=== PATIENT | female | born 1945 | race Hispanic/Latino ===

== ENCOUNTER 2020-05-06 17:32 | Inpatient (IN) | payer MEDICARE ==
[~2020-05-06] VITALS: Ht 157.5 cm; Wt 68.9 kg
--- OUTSIDE RECORDS SUMMARY | 2020-05-06 17:36 | XMS REPORT | Clinical Summary ---
Author Author [facility] Address Unknown Phone Unavailable Care Team Providers Care Educational Program Assistant Name Role Phone Des Gregory MD PCP Allergies No Known Active Allergies Medications End Date Status Medication Sig Dispensed Refills Start Date Active losartan-hydrochlorothiaz TK 1 T PO BID 1 03/27 mikaela (HYZAAR) 50-12.5 mg QD 8 per tablet Active omeprazole (PriLOSEC) 20 TK ONE C PO D 1 02/21 MG capsule 8 Active Problems No known active problems Surgical History Surgery Date Site/Laterality Comments KIDNEY SURGERY GALLBLADDER SURGERY Medical History Medical History Date Comments Hypertension Social History Date Tobacco Use Types Packs/Day Years Used Never Smoker Smokeless Tobacco: Never Used Drinks/Week oz/Week Comments Alcohol Use No Alcohol Habits Answer Date Recorded How often do you have a drink containing alcohol? Never 05/26/2018 How many drinks containing alcohol do you have on No t asked a typical day when you are drinking? How often do you have six or more drinks on one Not asked occasion? Sex Assigned at Date Recorded Not on file Last Filed Vital Signs Not on file Plan of Treatment Health Maintenance Due Date Last Done Comments BREAST CANCER SCREENING 1997 COLONOSCOPY SCREENING 1997 SHINGLES VACCINES (#1) 1997 65+ PNEUMOCOCCAL VACCINE 2012 ( - PPSV23) INFLUENZA VACCINE 01/26/2020 Results Not on fileafter 05/06/2019 Insurance Type Payer Benefit Subscriber ID Effective Phone Address Plan / Dates Group HMO [employer]IG[employer] CIGNA [id number] [id number] [facility] Advance Directives For more information, please contact: [phone] Patient Bell Person Explanation Type Date Recorded Advance Directives, Living Will and Medical Power of Animal Technician
--- OUTSIDE RECORDS SUMMARY | 2020-05-06 17:36 | XMS REPORT | Continuity of Care Document ---
Author Author [facility] t Organization [facility] Address [address] [place] [address] Phone Unavailable Care Team Providers Care Churn Tender Name Role Phone Colt STOCKTON, Oli Nunes PCP Payers Payer Name Policy Type Policy Number Effective Date Expiration Date S ource Problems This patient has no known problems. Allergies, Adverse Reactions, Alerts Allergy Name Allergy Type Status Severity Reaction(s) Onset Date Inacti ve Date Treating Clinician Comments Source No Known Allergies DA Active U 2020-01-30 00:00:00 [facility] Social History Social Habit Start Date Stop Date Quantity Comments Source History SDOH Alcohol Std Drinks [facility] History SDOH Alcohol Binge [place] [facility] Sex Assigned At [facility] Tobacco use and exposure 2018-05-26 00:00:00 2018-05-26 00:00:00 Jairosienna r used [facility] Alcohol intake 2018-05-26 00:00:00 2018-05-26 00:00:00 Current non-drinker of alcohol (finding) [facility] History SDOH Alcohol Frequency 2018-05-26 00:00:00 2018-05-26 00:00:0 0 1 [facility] Smoking Status Start Date Stop Date Source Never smoker [facility] Medications Ordered Medication Name Filled Medication Name Start Date Stop Da te Current Medication? Ordering Clinician Indication Dosage Frequency Signature (SIG) Comments Components Source losartan-hydrochlorothiazide (HYZAAR) 50-12.5 mg per tablet 2018-04-10 00:00:00 Yes TK 1 T [facility] 20 MG capsule 2018-02-21 00:00:00 Yes TK ONE C PO D [facility] Procedures This patient has no known procedures. Plan of Care Planned Activity Planned Date Details Comments Source Future Scheduled Test 2020-01-26 00:00:00 INFLUENZA VACCINE [code = INFLUENZA VACCINE] [facility] Future Scheduled Test 2012 00:00:00 65+ PNEUMOCOCCAL V ACCINE (1 of - PPSV23) [code = 65+ PNEUMOCOCCAL VACCINE (1 of - PPSV23)] [facility] Future Scheduled Test 1997 00:00:00 BREAST CANCER SCRE ENING [code = BREAST CANCER SCREENING] [facility] Future Scheduled Test 1997 00:00:00 COLONOSCOPY SCREEN ING [code = COLONOSCOPY SCREENING] [facility] Scheduled Test 1997 00:00:00 SHINGLES VACCINES (#1) [code = SHINGLES VACCINES (#1)] [facility] Results Test Description Test Time Test Comments Results Result Comments Source BASIC METABOLIC PANEL 2020-01-31 06:24:00 Test Item SODIUM (test code = NA) 138 mmol/L 136-145 RESU LT VERIFIED BY REPEAT ANALYSIS POTASSIUM (test code = K) 3.4 mmol/L 3.5-5.1 L CHLORIDE (test code = CL) 104.0 mmol/L 98-107 N CARBON DIOXIDE (test code = CO2) 27.0 mmol/L 21-32 N ANION GAP (test code = GAP) 10.4 10-20 N GLUCOSE (test code = GLU) 89 mg/dL 74-106 N BLOOD UREA NITROGEN (test code = BUN) 12 mg/dL 7-18 N GLOMERULAR FILTRATION RATE (test code = GFR) > 60 mL/min >=60 Estimated GFR by using Modified MDRD formula.Chronic kidney disease is defined as either kidney damageor GFR <60 mL/min/1.73 m2 for >3 months. CREATININE (test code = CREAT) 0.80 mg/dL 0.55-1.02 N Note change in reference range due to change in reagent. BUN/CREATININE RATIO (test code = BUN/CREA) 15.4 10-20 N CALCIUM (test code = CA) 8.5 mg/dL 8.5-10.1 N LIPID PROFILE (CORONARY RISK)2020-01-31 06:24:00* Test Item Value Reference Range Interpretation Comments TRIGLYCERIDES (test code = TRIG) 74 mg/dL 20-150 N CHOLESTEROL (test code = CHOL) 135 mg/dL 0-200 N CHOLESTEROL/HDL RATIO (test code = CHOLHDL) 2.0 RATIO 0-4.9 N RISK ASSOCIATED WITH CHOL/HDL RATIOS: Risk Male Female1/2 AVERAGE 3.43 3.27AVERAGE 4.97 4.442X AVERAGE 9.55 7.053X AVERAGE 23.39 11.04 REFERENCE VALUE IS RELATED TO RISK LEVELS ASRECOMMENDED BY THE KHADIJAH. HEART, LUNG, AND BLOOD INST. HDL CHOLESTEROL (test code = HDL) 56 mg/dL 40-60 N LIPOPROTEIN LDL (test code = LDL) 72 mg/dL 100-129 L Reference Interval: mg/dL mmol/L Optimal <100 <2.6Near/above optimal 100-129 2.6- 3.3Borderline High 130-159 3.4-4.1High 160-189 4.1-4.9Very High >=190 >=4.9========= This LDL result is a direct measurement.========= CBC W/AUTO [id number] 04:49:00* Test Item Value Reference Range Interpretation Comments WHITE BLOOD CELL (test code = WBC) 6.4 K/mm3 4.5-12.5 N RED BLOOD CELL (test code = RBC) 3.88 mill/mm3 3.7-5.2 N HEMOGLOBIN (test code = HGB) 11.3 gram/dL 11.5-15.5 L HEMATOCRIT (test code = HCT) 34.6 % 36.0-46.0 L MEAN CELL VOLUME (test code = MCV) 89.2 fL 80-98 N MEAN CELL HGB (test code = MCH) 29.1 picogram 27.0-33.0 N MEAN CELL HGB CONCETRATION (test code = MCHC) 32.7 gram/dL 33.0-36. 0 L RED CELL DISTRIBUTION WIDTH (test code = RDW) 12.3 % 11.6-16. 2 N RED CELL DISTRIBUTION WIDTH SD (test code = RDW-SD) 40.1 fL 37 .0-51.0 N PLATELET COUNT (test code = PLT) 304 K/mm3 150-450 N MEAN PLATELET VOLUME (test code = MPV) 11.4 fL 6.7-11.0 H NEUTROPHIL % (test code = NT%) 52.5 % 39.0-69.0 N IMMATURE GRANULOCYTE % (test code = IG%) 0.2 % 0.0-5.0 N LYMPHOCYTE % (test code = LY%) 36.8 % 25.0-55.0 N MONOCYTE % (test code = MO%) 9.1 % 0.0-10.0 N EOSINOPHIL % (test code = EO%) 0.6 % 0.0-5.0 N BASOPHIL % (test code = BA%) 0.8 % 0.0-1.0 N NUCLEATED RBC % (test code = NRBC%) 0.0 % 0-0 N NEUTROPHIL # (test code = NT#) 3.34 K/mm3 1.8-7.7 N IMMATURE GRANULOCYTE # (test code = IG#) 0.01 x10 3/uL 0-0.03 N LYMPHOCYTE # (test code = LY#) 2.34 K/mm3 1.0-5.0 N MONOCYTE # (test code = MO#) 0.58 K/mm3 0-0.8 N EOSINOPHIL # (test code = EO#) 0.04 K/mm3 0.0-0.5 N BASOPHIL # (test code = BA#) 0.05 K/mm3 0.0-0.2 N NUCLEATED RBC # (test code = NRBC#) 0.00 K/mm3 0.0-0.1 N MANUAL DIFF REQUIRED (test code = MDIFF) NO CBC W/AUTO [id number] 04:19:00* Test Item Value Reference Range Interpretation Comments WHITE BLOOD CELL (test code = WBC) K/mm3 4.5-12.5 RED BLOOD CELL (test code = RBC) mill/mm3 3.7-5.2 HEMOGLOBIN (test code = HGB) gram/dL 11.5-15.5 HEMATOCRIT (test code = HCT) % 36.0-46.0 MEAN CELL VOLUME (test code = MCV) fL 80-98 MEAN CELL HGB (test code = MCH) picogram 27.0-33.0 MEAN CELL HGB CONCETRATION (test code = MCHC) gram/dL 33.0-36. 0 RED CELL DISTRIBUTION WIDTH (test code = RDW) % 11.6-16. 2 RED CELL DISTRIBUTION WIDTH SD (test code = RDW-SD) fL 37 .0-51.0 PLATELET COUNT (test code = PLT) 304 K/mm3 150-450 N MEAN PLATELET VOLUME (test code = MPV) fL 6.7-11.0 NEUTROPHIL % (test code = NT%) % 39.0-69.0 IMMATURE GRANULOCYTE % (test code = IG%) % 0.0-5.0 LYMPHOCYTE % (test code = LY%) % 25.0-55.0 MONOCYTE % (test code = MO%) % 0.0-10.0 EOSINOPHIL % (test code = EO%) % 0.0-5.0 BASOPHIL % (test code = BA%) % 0.0-1.0 NEUTROPHIL # (test code = NT#) K/mm3 1.8-7.7 LYMPHOCYTE # (test code = LY#) K/mm3 1.0-5.0 MONOCYTE # (test code = MO#) K/mm3 0-0.8 EOSINOPHIL # (test code = EO#) K/mm3 0.0-0.5 BASOPHIL # (test code = BA#) K/mm3 0.0-0.2 [id number] 23:56:00* Test Item Value Reference Range Interpretation Comments TROPONIN-I (test code = TROPI) <0.015 ng/mL 0-0.045 N COMMENTS TO DEPUTY HARBORMASTER: COLLECT 3 HOURS AFTER PREVIOUS [id number] 10:04:00* Test Item Value Reference Range Interpretation Comments TROPONIN-I (test code = TROPI) <0.015 ng/mL 0-0.045 N COMMENTS TO DEPUTY HARBORMASTER: COLLECT 3 HOURS AFTER PREVIOUS SAMPLE- CTA CHEST FOR [id number] 09:17:00 Name: MITA CRISOSTOMO [facility] : 1945 Age/S: 74 / F [address] [facility] Unit #: [id number] Loc: [place] [address] Phys: Dimitrios Young DO Acct: [id number] Dis Date: Status: ADM IN PHONE #: [phone] Exam Date: 01/30/2020823 FAX #: [phone] Reason: evaluate for PE EXAMS: CPT CODE: [id number] [place] [address] REASON FOR EXAM: evaluate for PE EXAM ORDER DATE: 01/30/2020 6:53 AM Ordering M.D.: Dimitrios Young DO PROCEDURE: - CTA CHEST FOR PE Comparison:Chest x-ray earlier today Axial CT images of the chest were obtained with IV contrast. Reconstructed sagittal and coronal images of the chest were provided for interpretation. Dose reduction techniques were applied. FINDINGS: Visualized neck: Normal Airways, Lungs and Pleura: Normal Heart, great vessels, pulmonary vessels, mediastinum: Motion from patient respiration degrades images of the segmental and subsegmental pulmonary arteries. No emboli to the level of the lobar arteries and no evidence of right heart strain to suggest hemodynamically significant segmental or subsegmental pulmonary emboli. Atherosclerotic calcifications are scattered throughout the thoracic aorta. Mild coronary calcifications are also present. Lymph nodes: No axillary, internal mammary, hilar, or mediastinal adenopathy. Musculoskeletal/chest wall: Degenerative changes are seen throughout the visualized spine Visualized upper abdomen: Large hiatal hernia is present. Prior cholecystectomy IMPRESSION: No pulmonary embolus to the level of the lobar arteries and no evidence of hemodynamically significant segmental or subsegmental pulmonary emboli. No acute disease involving the airways or airspaces. PAGE 1 Signed Report (CONTINUED) Name: MITA CRISOSTOMO [facility] : 1945 Age/S: 74 / F [address] [facility] Unit #: [id number] [facility] [place] [address] Phys: Dimitrios Young DO Acct: [id number] Dis Date: Status: ADM IN PHONE #: [phone] Exam Date: 01/30/2020823 FAX #: [phone] Reason: evaluate for PE EXAMS: CPT CODE: [id number] CTA CHEST FOR PE 10009 <Continued> Large hiatal hernia. Location: [facility] Elect ronically Signed by Robel Farley MD on 01/30/2020 at 0917 Reported and signed by: Robel Farley MD CC: Dimitrios Calderon DO Technologist:Jm Harris RT(R),(MR),(CT); CTDI: DLP: Trnscb Date/Time: 01/30/2020 (916) [id number] Orig Print D/T: S: 01/30/2020 (919) PAGE 2 Signed Report B-TYPE NATRIURETIC [id number] 07:01:00* Test Item Value Reference Range Interpretation Comments B-TYPE NATRIURETIC PEPTIDE (test code = BNP) 19.65 pgram/mL 0-100 N C REACTIVE [id number] 06:23:00* Test Item Value Reference Range Interpretation Comments C REACTIVE PROTEIN (test code = CRP) <0.29 mg/dL 0-0.3 N BASIC METABOLIC [id number] 06:23:00* Test Item Value Reference Range Interpretation Comments SODIUM (test code = NA) 131 mmol/L 136-145 L POTASSIUM (test code = K) 3.5 mmol/L 3.5-5.1 N CHLORIDE (test code = CL) 98.0 mmol/L 98-107 N CARBON DIOXIDE (test code = CO2) 26.0 mmol/L 21-32 N ANION GAP (test code = GAP) 10.5 10-20 N GLUCOSE (test code = GLU) 100 mg/dL 74-106 N BLOOD UREA NITROGEN (test code = BUN) 18 mg/dL 7-18 N GLOMERULAR FILTRATION RATE (test code = GFR) > 60 mL/min >=60 Estimated GFR by using Modified MDRD formula.Chronic kidney disease is defined as either kidney damageor GFR <60 mL/min/1.73 m2 for >3 months. CREATININE (test code = CREAT) 0.90 mg/dL 0.55-1.02 N Note change in reference range due to change in reagent. BUN/CREATININE RATIO (test code = BUN/CREA) 20.7 10-20 H CALCIUM (test code = CA) 9.3 mg/dL 8.5-10.1 N LACTIC DEHYDROGENASE(LDH)2020-01-30 06:23:00* Test Item Value Reference Range Interpretation Comments LACTIC DEHYDROGENASE(LDH) (test code = LDH) 200 IUnit/L 84-246 N [id number] 06:23:00* Test Item Value Reference Range Interpretation Comments LIPASE (test code = LIP) 259 U/L 73.0-393.0 N [id number] 06:23:00* Test Item Value Reference Range Interpretation Comments TROPONIN-I (test code = TROPI) <0.015 ng/mL 0-0.045 N [id number] 06:23:00* Test Item Value Reference Range Interpretation Comments FERRITIN (test code = VINNY) 7 ng/mL 8-388 L LACTIC [id number] 06:23:00* Test Item Value Reference Range Interpretation Comments LACTIC ACID (test code = LACT) 1.2 mmol/L 0.4-1.9 N BASIC METABOLIC [id number] 06:15:00* Test Item Value Reference Range Interpretation Comments SODIUM (test code = NA) 131 mmol/L 136-145 L POTASSIUM (test code = K) 3.5 mmol/L 3.5-5.1 N CHLORIDE (test code = CL) 98.0 mmol/L 98-107 N CARBON DIOXIDE (test code = CO2) mmol/L 21-32 ANION GAP (test code = GAP) 10-20 GLUCOSE (test code = GLU) mg/dL 74-106 BLOOD UREA NITROGEN (test code = BUN) mg/dL 7-18 GLOMERULAR FILTRATION RATE (test code = GFR) mL/min >=60 CREATININE (test code = CREAT) mg/dL 0.55-1.02 BUN/CREATININE RATIO (test code = BUN/CREA) 10-20 CALCIUM (test code = CA) mg/dL 8.5-10.1 LACTIC DEHYDROGENASE(LDH)2020-01-30 06:15:00* Test Item Value Reference Range Interpretation Comments LACTIC DEHYDROGENASE(LDH) (test code = LDH) IUnit/L 84-246 [id number] 06:15:00* Test Item Value Reference Range Interpretation Comments LIPASE (test code = LIP) U/L 73.0-393.0 [id number] 06:15:00* Test Item Value Reference Range Interpretation Comments TROPONIN-I (test code = TROPI) ng/mL 0-0.045 [id number] 06:15:00* Test Item Value Reference Range Interpretation Comments FERRITIN (test code = VINNY) ng/mL 8-388 COVID 19 INHOUSE [id number] 06:13:00* Test Item Value Reference Range Interpretation Comments COVID 19 INHOUSE AG (test code = [id number]) NEGATIVE URINALYSIS [id number] 06:05:00* Test Item Value Reference Range Interpretation Comments UA COLOR (test code = COLU) Light-Yellow YELLOW UA APPEARANCE (test code = APPU) CLEAR CLEAR UA GLUCOSE DIPSTICK (test code = DGLUU) NEGATIVE mg/dL NEGATIVE UA BILIRUBIN DIPSTICK (test code = BILU) NEGATIVE mg/dL NEGATIVE UA KETONE DIPSTICK (test code = KETU) NEGATIVE mg/dL NEGATIVE UA SPECIFIC GRAVITY (test code = SGU) 1.014 1.001-1.035 UA BLOOD DIPSTICK (test code = ERIC) Negative mg/dL NEGATIVE UA PH DIPSTICK (test code = MAU) 7.0 5.0-8.0 UA PROTEIN DIPSTICK (test code = PROU) NEGATIVE mg/dL NEGATIVE UA UROBILINIOGEN DIPSTICK (test code = URO) Normal mg/dL NEGATIVE UA NITRITE DIPSTICK (test code = BOB) NEGATIVE NEGATIVE UA LEUKOCYTE ESTERASE W REFLEX (test code = LEUUR) 75 Alexandre/uL (1+) Alexandre/uL NEGATIVE A UA WBC (test code = WBCU) 0-5 per HPF 0-5 UA RBC (test code = RBCU) 0-2 #/HPF 0-5 UA EPITHELIAL CELLS (test code = EPIU) FEW per HPF FEW UA BACTERIA (test code = BACU) NONE SEEN #/HPF NONE UA MUCUS (test code = MUCU) FEW #/LPF FEW Urine Source? Clean CatchURINALYSIS [id number] 06:03:00* Test Item Value Reference Range Interpretation Comments UA COLOR (test code = COLU) Light-Yellow YELLOW UA APPEARANCE (test code = APPU) CLEAR CLEAR UA GLUCOSE DIPSTICK (test code = DGLUU) NEGATIVE mg/dL NEGATIVE UA BILIRUBIN DIPSTICK (test code = BILU) NEGATIVE mg/dL NEGATIVE UA KETONE DIPSTICK (test code = KETU) NEGATIVE mg/dL NEGATIVE UA SPECIFIC GRAVITY (test code = SGU) 1.014 1.001-1.035 UA BLOOD DIPSTICK (test code = ERIC) Negative mg/dL NEGATIVE UA PH DIPSTICK (test code = MAU) 7.0 5.0-8.0 UA PROTEIN DIPSTICK (test code = PROU) NEGATIVE mg/dL NEGATIVE UA UROBILINIOGEN DIPSTICK (test code = URO) Normal mg/dL NEGATIVE UA NITRITE DIPSTICK (test code = BOB) NEGATIVE NEGATIVE UA LEUKOCYTE ESTERASE W REFLEX (test code = LEUUR) 75 Alexandre/uL (1+) Alexandre/uL NEGATIVE A UA WBC (test code = WBCU) per HPF 0-5 UA RBC (test code = RBCU) per HPF 0-5 UA EPITHELIAL CELLS (test code = EPIU) per HPF Few UA BACTERIA (test code = BACU) per HPF NONE Urine Source? Clean Catch- XR CHEST 1 [id number] 05:47:00 FAX: Dimitrios Young DO [place]: B St: REG Name: MITA WILLAMS [facility] : [birth year] Age/S: 74/F [address] [facility] Unit #: [id number] [facility] [place] [address] Phys: Dimitrios Young DO Acct: [id number] Dis Date: Status: REG ER PHONE #: [phone] Exam Date: 01/30/2020 0520 FAX #: [phone] Reason: SHORTNESS OF BREATH EXAMS: CPT CODE: [id number] XR CHEST 1 V 06765 HISTORY: Shortness of breath Location: C3 COMPARISON:None FINDINGS: Heart size and vascularity are within normal limits. The lungs are clear of focal consolidation. No effusion, pneumothorax, or acute osseous abnormality. IMPRESSION: 1. No focal consolidation. No other acute abnormalities identified. Electr onically Signed by Denis Navarrete MD on 01/30/2020 at 0547 Reported and signed by: Denis Navarrete MD CC: Dimitrios Young DO Technologist: Katy Hahn Trnnmrd Date/Time/By: 01/30/2020 (0547) : By: [email or web address] Orig Print D/T: S: 01/30/2020 (4145) PAGE 1 Signed Report CBC W/AUTO [id number] 05:46:00* Test Item Value Reference Range Interpretation Comments WHITE BLOOD CELL (test code = WBC) 5.3 K/mm3 4.5-12.5 N RED BLOOD CELL (test code = RBC) 3.87 mill/mm3 3.7-5.2 N HEMOGLOBIN (test code = HGB) 11.2 gram/dL 11.5-15.5 L HEMATOCRIT (test code = HCT) 34.5 % 36.0-46.0 L MEAN CELL VOLUME (test code = MCV) 89.1 fL 80-98 N MEAN CELL HGB (test code = MCH) 28.9 picogram 27.0-33.0 N MEAN CELL HGB CONCETRATION (test code = MCHC) 32.5 gram/dL 33.0-36. 0 L RED CELL DISTRIBUTION WIDTH (test code = RDW) 12.3 % 11.6-16. 2 N RED CELL DISTRIBUTION WIDTH SD (test code = RDW-SD) 40.0 fL 37 .0-51.0 N PLATELET COUNT (test code = PLT) 301 K/mm3 150-450 N MEAN PLATELET VOLUME (test code = MPV) 11.2 fL 6.7-11.0 H NEUTROPHIL % (test code = NT%) 49.7 % 39.0-69.0 N IMMATURE GRANULOCYTE % (test code = IG%) 0.2 % 0.0-5.0 N LYMPHOCYTE % (test code = LY%) 39.3 % 25.0-55.0 N MONOCYTE % (test code = MO%) 8.6 % 0.0-10.0 N EOSINOPHIL % (test code = EO%) 1.5 % 0.0-5.0 N BASOPHIL % (test code = BA%) 0.7 % 0.0-1.0 N NUCLEATED RBC % (test code = NRBC%) 0.0 % 0-0 N NEUTROPHIL # (test code = NT#) 2.65 K/mm3 1.8-7.7 N IMMATURE GRANULOCYTE # (test code = IG#) 0.01 x10 3/uL 0-0.03 N LYMPHOCYTE # (test code = LY#) 2.10 K/mm3 1.0-5.0 N MONOCYTE # (test code = MO#) 0.46 K/mm3 0-0.8 N EOSINOPHIL # (test code = EO#) 0.08 K/mm3 0.0-0.5 N BASOPHIL # (test code = BA#) 0.04 K/mm3 0.0-0.2 N NUCLEATED RBC # (test code = NRBC#) 0.00 K/mm3 0.0-0.1 N MANUAL DIFF REQUIRED (test code = MDIFF) NO
[2020-05-06 17:45] VITALS: BP 159/66
--- NOTE | 2020-05-06 17:45 | NUR ---
Received patient direct admit. AO x4. Liberian speaking, daughter at bedside. Respiration even and unlabored without SOB. C/O abdominal pain radiating to back. Orientated to room and how to use the call light. Encourage to use call light if assistance needed.
[2020-05-06 18:29] LABS: BASOPHILS % 0.1 % (0.0-1.0); HEMOGLOBIN 7.3 g/dL (12.0-16.0); LYMPHOCYTES # (AUTO) 0.9 (1.0-3.2); LYMPHOCYTES % 7.5 % (18.0-39.1); MEAN CORPUSCULAR HEMOGLOBIN 29.1 pg (28-32); MEAN CORPUSCULAR HGB CONC 34.3 g/dL (31-35); MEAN CORPUSCULAR VOLUME 84.9 fL (81-99); MONOCYTES # (AUTO) 0.9 (0.2-0.8); MONOCYTES % 7.9 % (4.4-11.3); NEUTROPHILS # (AUTO) 9.5 (2.1-6.9); NEUTROPHILS % 84.1 % (38.7-80.0); PLATELET COUNT 259 x10e3/uL (140-360); RED BLOOD COUNT 2.51 x10e6/uL (3.6-5.1); RED CELL DISTRIBUTION WIDTH 12.7 % (11.7-14.4)
[2020-05-06 18:32] LABS: HEMATOCRIT 21.3 % (34.2-44.1)
[2020-05-06] MEDS ORDERED: PROMETHAZINE 12.5MG/ NACL 0.9% 12.5 MG/50 ML BAG IV PRN (18:45)
[2020-05-06] MEDS ORDERED: DEXTROSE 5%/0.9% SOD CHL 1,000 ML IV ONE (18:45)
[2020-05-06 18:56] LABS: ALANINE AMINOTRANSFERASE 17 IU/L (0-55); ALBUMIN 3.7 g/dL (3.5-5.0); ALBUMIN/GLOBULIN RATIO 1.6 (0.8-2.0); ALKALINE PHOSPHATASE 50 IU/L (40-150); BLOOD UREA NITROGEN 20 mg/dL (7-26); BUN/CREATININE RATIO 25 (6-25); CALCIUM 8.4 mg/dL (8.4-10.2); CARBON DIOXIDE 24 mmol/L (22-29); CHLORIDE 83 mmol/L (98-107); EST GLOMERULAR FILTRATION RATE > 60 ML/MIN (60-); GLUCOSE 110 mg/dL (74-118)
[2020-05-06] MEDS: ACETAMINOPHEN 325 MG TAB PO PRN (18:56)
[2020-05-06 19:07] LABS: SODIUM 116 mmol/L (136-145)
[2020-05-06] MEDS ORDERED: CLONIDINE HCL0.1 MG PO (19:07)
[2020-05-06] MEDS ORDERED: FERROUS SULFAT325 M1 PO (19:07)
[2020-05-06] MEDS ORDERED: NIFEDIPINE ER30 M1 PO (19:07)
[2020-05-06] MEDS ORDERED: ASPIRIN EC81 MG PO (19:07)
[2020-05-06] MEDS ORDERED: OMEPRAZOLE40 MG PO (19:07)
[2020-05-06] MEDS ORDERED: ALPRAZOLAM0.5 MG PO (19:07)
[2020-05-06] MEDS ORDERED: SODIUM CHLORIDE1 GM PO (19:07)
[2020-05-06] MEDS ORDERED: ATORVASTATIN CA20 MG PO (19:07)
[2020-05-06] MEDS ORDERED: CARVEDILOL12.5 MG PO (19:07)
[2020-05-06] MEDS ORDERED: BENICAR20 MG PO (19:07)
[2020-05-06] MEDS ORDERED: GABAPENTIN300 MG PO (19:07)
[2020-05-06] MEDS ORDERED: HYDROCHLOROTHIA25 MG PO (19:09)
[2020-05-06 19:34] LABS: FERRITIN 50.82 ng/mL (4.63-204.00)
--- NOTE | 2020-05-06 19:44 | Diagnostic Imaging Report ---
EXAMINATION: CHEST 2 VIEWS, RIBS UNILAT W/CXR MULTIPLE VIEWS WITH CHEST PA INDICATION: Left chest pain. COMPARISON: None FINDINGS: TUBES and LINES: None. LUNGS and PLEURA: Patchy density in the lower left hemithorax with blunting of the lateral and posterior costophrenic sulci suggestive of small pleural effusion and right basilar subsegmental atelectasis versus scarring. No pneumothorax. HEART AND MEDIASTINUM: The cardiomediastinal silhouette is unremarkable. BONES AND SOFT TISSUES: There are degenerative changes in the thoracic spine. UPPER ABDOMEN: No free air under the diaphragm. There are cholecystectomy clips. IMPRESSION: 1. Findings suggestive of left pleural effusion and left basilar atelectasis. 2. No evidence of displaced rib fractures as per clinical query. Signed by: Dr. Ibeth Simmons M.D. on 05/06/2020 7:40 PM
[2020-05-06 19:45] LABS: BILIRUBIN,URINE NEGATIVE (NEGATIVE); CLARITY,URINE SL CLOUDY (CLEAR); COLOR,URINE YELLOW (YELLOW); KETONES,URINE 1+ (NEGATIVE); LEUKOCYTE ESTERASE ,URINE NEGATIVE (NEGATIVE); NITRITE,URINE NEGATIVE (NEGATIVE); PROTEIN,URINE DIPSTICK 1+ (NEGATIVE); URINE UROBILINOGEN 0.2 mg/dL (0.2 - 1)
[2020-05-06 19:56] VITALS: BP 159/66
[2020-05-06 20:00] LABS: AMORPHOUS SEDIMENT,URINE MODERATE (FEW); BACTERIA,URINE MODERATE /HPF; EPITHELIAL CELLS,URINE MODERATE /LPF; RBC,URINE 0-5 /HPF (0-5)
[2020-05-06] MEDS ORDERED: ZOLPIDEM TARTRATE 5 MG TAB PO PRN (21:00)
[2020-05-06] MEDS: SODIUM CHLORIDE 0.9% 1000ML 1,000 ML IV ONE ×2 (21:00→21:36)
[2020-05-06] MEDS: ONDANSETRON HCL INJ 2MG/ML 2ML 2 MG/ML VIAL IV PRN (21:37)
[2020-05-06] MEDS: GABAPENTIN 300 MG CAP PO SCH (21:45)
[2020-05-06] MEDS: SODIUM CHLORIDE 1 GM TAB PO SCH (21:45)
[2020-05-06 21:52] VITALS: BP 159/66
[2020-05-06 23:37] VITALS: BP 149/74
[2020-05-07] VITALS (8 sets, daily range): BP systolic 88–160; BP diastolic 43–89
[2020-05-07] MEDS: SODIUM CHLORIDE 0.9% 1000ML 1,000 ML IV SCH ×2 (00:36→19:18)
--- NOTE | 2020-05-07 07:15 | NUR ---
RECEIVED PT RESTING IN BED. PT IN STABLE CONDITION. NO C/O PAIN VERBALIZED. BED ALARM APPLIED. CALL LIGHT WITHIN REACH. WILL CONTINUE TO MONITOR.
--- NOTE | 2020-05-07 07:22 | NUR ---
A COVID SPECIMEN WAS COLLECTED AND THE TEST ENDED AROUND 0630AM. A LANGUAGE LINE WAS USED AND THE BLACK OFF WORKER WAS SHAHANA # [id number] SPOKE TO PATIENT IN [place].
[2020-05-07 07:36] LABS: BASOPHILS % 0.1 % (0.0-1.0); EOSINOPHILS % 0.1 % (0.0-6.0); LYMPHOCYTES # (AUTO) 1.2 (1.0-3.2); MEAN CORPUSCULAR HEMOGLOBIN 29.3 pg (28-32); MEAN CORPUSCULAR HGB CONC 34.2 g/dL (31-35); MEAN CORPUSCULAR VOLUME 85.6 fL (81-99); MONOCYTES # (AUTO) 0.8 (0.2-0.8); MONOCYTES % 12.1 % (4.4-11.3); NEUTROPHILS # (AUTO) 4.8 (2.1-6.9); NEUTROPHILS % 70.4 % (38.7-80.0); PLATELET COUNT 231 x10e3/uL (140-360); RED BLOOD COUNT 2.22 x10e6/uL (3.6-5.1); RED CELL DISTRIBUTION WIDTH 13.1 % (11.7-14.4)
[2020-05-07 07:42] LABS: HEMOGLOBIN 6.5 g/dL (12.0-16.0)
[2020-05-07 07:50] LABS: ANION GAP 11.8 mmol/L (8-16); BLOOD UREA NITROGEN 13 mg/dL (7-26); BUN/CREATININE RATIO 17 (6-25); CALCIUM 8.2 mg/dL (8.4-10.2); CARBON DIOXIDE 24 mmol/L (22-29); CHLORIDE 94 mmol/L (98-107); CREATININE, SERUM 0.78 mg/dL (0.57-1.11); EST GLOMERULAR FILTRATION RATE > 60 ML/MIN (60-); GLUCOSE 94 mg/dL (74-118); POTASSIUM 3.8 mmol/L (3.5-5.1); SODIUM 126 mmol/L (136-145)
--- NOTE | 2020-05-07 08:00 | NUR ---
RECEIVED PT RESTING IN BED. PT IN STABLE CONDITION. RESPIRATIONS EVEN AND BREATHING UNLABORED. NO C/O PAIN VERBALIZED. CALL LIGHT WITHIN REACH. WILL CONTINUE TO MONITOR.
--- NOTE | 2020-05-07 08:18 | NUR ---
LEFT VM TO DR. TINSLEY REGARDING CRITICAL HGB 6.5
[2020-05-07] MEDS: NIFEDIPINE CR 30 MG TAB PO SCH (08:32)
[2020-05-07] MEDS: OLMESARTAN 20 MG TAB PO SCH (08:32)
[2020-05-07] MEDS: SODIUM CHLORIDE 1 GM TAB PO SCH (08:33)
[2020-05-07] MEDS: CARVEDILOL 12.5 MG TAB PO SCH ×2 (08:33→17:00)
[2020-05-07] MEDS: ALPRAZOLAM 0.5 MG TAB PO SCH (08:34)
[2020-05-07] MEDS: ATORVASTATIN 20 MG TAB PO SCH (08:34)
[2020-05-07] MEDS: FERROUS SULFATE 325 MG TAB PO SCH ×2 (08:35→19:18)
[2020-05-07] MEDS: CLONIDINE HCL 0.1 MG TAB PO SCH ×2 (08:35→17:00)
[2020-05-07] MEDS: PANTOPRAZOLE SOD 40 MG TABEC PO SCH (08:35)
--- NOTE | 2020-05-07 08:36 | Diagnostic Imaging Report ---
Renal ultrasound. Clinical History: Left flank pain. Comparison Study: None available Findings: The right kidney measures 9.9cm and left kidney measures 11 cm. There is no evidence of hydronephrosis, nephrolithiasis or renal mass on either side. The echogenicity is normal bilaterally. The cortical thickness on the right side is 1.3 cm and on the left side is 1.5 cm. The L1 echo structure is noted in the right lobe of the liver measuring 5.0 x 3.2 x 4.0 cm. Both arterial and venous flow is documented to both kidneys. The bladder is unremarkable, with prevoid volume of 128 mL. Bilateral ureteral jets are identified. Impression: 1. Bilateral normal renal ultrasound. 2. Incidental note of simple right hepatic cyst. Signed by: Rell Chirinos on 05/07/2020 8:33 AM
[2020-05-07] MEDS ORDERED: ASPIRIN 81 MG ENTERIC COATED PO SCH (09:00)
[2020-05-07] MEDS ORDERED: SODIUM CHLORIDE 1 GM TAB PO SCH (09:00)
[2020-05-07] MEDS: ACETAMINOPHEN 325 MG TAB PO PRN (09:38)
[2020-05-07] MEDS ORDERED: ONDANSETRON HCL INJ 2MG/ML 2ML 2 MG/ML VIAL IV PRN (10:30)
--- NOTE | 2020-05-07 10:32 | NUR ---
H&P cc: N/V and low Na HPI: 75yoF, PCP , developed intractable N/V, with abdominal pain for 3 days. [place] weak. Found to have low Na. PMH: HTN, HLD, GERD PSHx:cholecystectomy Allergies; see emr FH/SH; ; no cigs meds; see MAR ROS: no f/c/s/DANIELLE/cp/sob/skin rash/confusion/dizziness/leg pain/vision changes v/s revd PE tired appearing anicteric ns1s2 mod bs soft nt nd no e/t skin dry n. affect labs/meds revd A/P: 75yoF, Hyponatremia- rehydrate; check urine Na/osm and serum osm Dehydration- rehydrate Acute gastroenteritis- IVF; abx Normocytic anemia- moderate; check stool occult; give 2 units PBRC; check vitB12; iron studies ok UTI- ceftrixone; get culture Left pleural effusion- monitor HTN- home meds; hold HCZ GERD- ppi HLD- statin Prop: scd; ppi dispo: f/u labs; MEHNAZ TINSLEY MD PHD.
[2020-05-07 11:05] LABS: BLOOD UREA NITROGEN 13 mg/dL (7-26); GLUCOSE 94 mg/dL (74-118); OSMOLALITY,SERUM 253 mOsm/kg (278-305); SODIUM 126 mmol/L (136-145)
[2020-05-07] MEDS ORDERED: SODIUM CHLORIDE 0.9% 250ML 0 ML ONE (11:39)
[2020-05-07] MEDS: CEFTRIAXONE SOD 1 GM/NS 50 ML 50 ML IV SCH (11:56)
[2020-05-07] MEDS: DOCUSATE SODIUM 100 MG CAP PO PRN (12:30)
--- NOTE | 2020-05-07 12:43 | NUR ---
DAY 1 OBS. ADMITTED W N/V, DEHYDRATION HGB 6.5, STOOL OCC BLOOD ORDERED. NA 116/126; NA CHL REPLACEMENT. SPOKE W USHA DEVINE STATES THE PT IS NOT FATIGUED TODAY AND IS TOLERATING HER DIET. SENT TO R1 FOR LOC DETERMINATION.
[2020-05-07] MEDS ORDERED: SODIUM CHLORIDE 0.9% 250ML 250 ML IV ONE (13:30)
[2020-05-07] MEDS ORDERED: SODIUM CHLORIDE 0.9% 250ML 250 ML ONE (18:41)
--- NOTE | 2020-05-07 19:00 | NUR ---
Received change of shift report from AM nurse. Walking rounds completed.
--- NOTE | 2020-05-07 19:48 | NUR ---
PATIENT RESTING IN BED. RESPIRATIONS EVEN AND BREATHING UNLABORED. PT IN STABLE CONDITION. BLOOD INFUSING @ 100 Ml/HR. NO C/O PAIN VERBALIZED. REPORT GIVEN TO ONCOMING NURSE.
--- NOTE | 2020-05-07 20:16 | NUR ---
Patient ambulated to bathroom with asst. and walker. Patient receiving blood with no c/o at this time. Patient had a med size brown BM soft. Continue monitor.
[2020-05-07] MEDS: GABAPENTIN 300 MG CAP PO SCH (20:32)
[2020-05-07] MEDS ORDERED: ZOLPIDEM TARTRATE 5 MG TAB PO PRN (21:00)
[2020-05-08] VITALS (8 sets, daily range): BP systolic 91–136; BP diastolic 47–79
--- NOTE | 2020-05-08 | NUR ---
Patient received 2 units of blood. Patient tolerated well with no signs or symptom noted. Patient up ambulating to bathroom. Had a BM.
--- NOTE | 2020-05-08 05:42 | NUR ---
IM- progress note O/N see below ROS: no f/c/s/DANIELLE/cp/sob/skin rash/confusion/dizziness/leg pain/vision changes v/s revd PE tired appearing anicteric ns1s2 mod bs soft nt nd no e/t skin dry n. affect labs/meds revd A/P: 75yoF, Hyponatremia- rehydrate; check urine Na/osm and serum osm Dehydration- rehydrate Acute gastroenteritis- IVF; abx Normocytic anemia- moderate; check stool occult; give 2 units PBRC; check vitB12; iron studies ok UTI- ceftrixone; get culture Left pleural effusion- monitor HTN- home meds; hold HCZ GERD- ppi HLD- statin Prop: scd; ppi dispo: f/u labs; 05-08-20 Renal U/S normal; got 2 Units PRBC: check labs; Positive blood in stool- check CT abdomen; consult pt's GI . MEHNAZ TINSLEY MD PHD.
--- NOTE | 2020-05-08 06:21 | NUR ---
Blood comlpleted kojo patint resting uitly at this time.
[2020-05-08 06:27] LABS: BASOPHILS % 0.5 % (0.0-1.0); EOSINOPHILS # (AUTO) 0.1 (0.0-0.4); EOSINOPHILS % 1.8 % (0.0-6.0); HEMATOCRIT 24.8 % (34.2-44.1); HEMOGLOBIN 8.4 g/dL (12.0-16.0); LYMPHOCYTES # (AUTO) 1.4 (1.0-3.2); LYMPHOCYTES % 23.7 % (18.0-39.1); MEAN CORPUSCULAR HEMOGLOBIN 29.7 pg (28-32); MEAN CORPUSCULAR HGB CONC 33.9 g/dL (31-35); MEAN CORPUSCULAR VOLUME 87.6 fL (81-99); MONOCYTES # (AUTO) 0.8 (0.2-0.8); MONOCYTES % 13.4 % (4.4-11.3); NEUTROPHILS # (AUTO) 3.6 (2.1-6.9); NEUTROPHILS % 60.4 % (38.7-80.0); PLATELET COUNT 205 x10e3/uL (140-360); RED BLOOD COUNT 2.83 x10e6/uL (3.6-5.1); RED CELL DISTRIBUTION WIDTH 13.4 % (11.7-14.4)
[2020-05-08 07:01] LABS: ANION GAP 11.6 mmol/L (8-16); BLOOD UREA NITROGEN 15 mg/dL (7-26); BUN/CREATININE RATIO 18 (6-25); CALCIUM 8.2 mg/dL (8.4-10.2); CARBON DIOXIDE 23 mmol/L (22-29); CHLORIDE 103 mmol/L (98-107); CREATININE, SERUM 0.84 mg/dL (0.57-1.11); EST GLOMERULAR FILTRATION RATE > 60 ML/MIN (60-); GLUCOSE 91 mg/dL (74-118); POTASSIUM 3.6 mmol/L (3.5-5.1); SODIUM 134 mmol/L (136-145)
[2020-05-08] MEDS ORDERED: SODIUM CHLORIDE 0.9% 50ML 50 ML ONE (07:02)
[2020-05-08] MEDS ORDERED: IOPAMIDOL 370 MG/ML 200 ML INFUS..BTL INJ ONE (07:02)
--- NOTE | 2020-05-08 07:51 | Diagnostic Imaging Report ---
EXAM: CT Abdomen and Pelvis WITH contrast INDICATION: Nausea, vomiting, low hemoglobin ^GIB ^[id number] ^[id number] COMPARISON: Renal ultrasound 05/07/2020. TECHNIQUE: Abdomen and pelvis were scanned utilizing a multidetector helical scanner from the lung base to the pubic symphysis after administration of IV contrast. Coronal and sagittal reformations were obtained. Routine protocol was performed. Scan was performed when during portal venous phase. IV CONTRAST: 100 mL of Isovue 370 ORAL CONTRAST: None COMPLICATIONS: None RADIATION DOSE: Total DLP: 311 mGy*cm Estimated effective dose: (DLP x 0.015 x size factor) mSv CTDIvol has been reviewed. It is below the limits set by the Radiation Protocol Committee (RPC). Dose modulation, iterative reconstruction, and/or weight based adjustment of the mA/kV was utilized to reduce the radiation dose to as low as reasonably achievable. FINDINGS: LINES and TUBES: None. LOWER THORAX: Small left pleural effusion. HEPATOBILIARY: A 3.7 cm right inferior hepatic lobe simple cyst. No focal hepatic lesions. No biliary ductal dilation. GALLBLADDER: There are cholecystectomy clips. SPLEEN: No splenomegaly. PANCREAS: No focal masses or ductal dilatation. ADRENALS: No adrenal nodules KIDNEYS/URETERS: The left kidney is displaced anteriorly by the left retroperitoneal hematoma. Kidneys enhance symmetrically. No hydronephrosis. A questionable 2 x 1.1 cm heterogeneous partially fatty exophytic mass along the left renal inferior pole (series 2 image 27, series 301 image 46). No stones. GI TRACT: Small sliding gastric hina hernia. No abnormal distention, wall thickening, or evidence of bowel obstruction. Appendix is normal. PELVIC ORGANS/BLADDER: Unremarkable. LYMPH NODES: No lymphadenopathy. VESSELS: Unremarkable. PERITONEUM / RETROPERITONEUM: A 10 x 8.4 cm bloody collection in the left retroperitoneum extends towards the left kidney. Blood tracks into the left iliac fossa and presacral space. No free air. BONES: Degenerative changes. SOFT TISSUES: Unremarkable. IMPRESSION: 1. A 10 cm left retroperitoneal/perinephric hematoma, blood tracks into the left iliac fossa and presacral space. 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 2. Small left pleural effusion. 3. Small sliding gastric hiatal hernia. Signed by: Serafin Altman DO on 05/08/2020 7:47 AM
[2020-05-08] MEDS: PANTOPRAZOLE SOD 40 MG TABEC PO SCH (08:37)
[2020-05-08] MEDS: CLONIDINE HCL 0.1 MG TAB PO SCH ×2 (08:38→16:20)
[2020-05-08] MEDS: OLMESARTAN 20 MG TAB PO SCH (08:38)
[2020-05-08] MEDS: FERROUS SULFATE 325 MG TAB PO SCH ×2 (08:39→16:21)
[2020-05-08] MEDS: ATORVASTATIN 20 MG TAB PO SCH (08:40)
[2020-05-08] MEDS: NIFEDIPINE CR 30 MG TAB PO SCH (08:40)
[2020-05-08] MEDS: SODIUM CHLORIDE 1 GM TAB PO SCH (08:41)
[2020-05-08] MEDS: CARVEDILOL 12.5 MG TAB PO SCH ×2 (08:41→16:20)
[2020-05-08] MEDS: ALPRAZOLAM 0.5 MG TAB PO SCH (08:41)
--- NOTE | 2020-05-08 08:45 | NUR ---
PATIENT RESTING IN BED. RESPIRATIONS EVEN AND BREATHING UNLABORED. PT IN STABLE CONDITION. NS INFUSING @ 50 Ml/HR. NO C/O PAIN VERBALIZED.
--- NOTE | 2020-05-08 09:35 | NUR ---
SPOKE TO DR. TINSLEY REGARDING CT RESULTS. NOTES NO BLOOD THINNERS AT THIS TIME, OK TO GIVE TYLENOL, AND REPEAT H&H @ 4PM. WOULD LIKE TO BE NOTIFIED ONCE RESULTS RECEIVED.
[2020-05-08] MEDS: CEFTRIAXONE SOD 1 GM/NS 50 ML 50 ML IV SCH (10:19)
[2020-05-08] MEDS: SODIUM CHLORIDE 0.9% 1000ML 1,000 ML IV SCH (11:05)
[2020-05-08 16:33] LABS: HEMATOCRIT 24.4 % (34.2-44.1); HEMOGLOBIN 8.1 g/dL (12.0-16.0)
[2020-05-08] MEDS ORDERED: CARAFATE1 GM/10 ML PO (17:19)
[2020-05-08] MEDS ORDERED: PROTONIX20 MG PO (17:19)
--- NOTE | 2020-05-08 17:27 | NUR ---
IM- progress note O/N see below ROS: no f/c/s/DANIELLE/cp/sob/skin rash/confusion/dizziness/leg pain/vision changes v/s revd PE tired appearing anicteric ns1s2 mod bs soft nt nd no e/t skin dry n. affect labs/meds revd A/P: 75yoF, Hyponatremia- rehydrate; check urine Na/osm and serum osm Dehydration- rehydrate Acute gastroenteritis- IVF; abx Left Retroperitoneal/Perinephric hematoma- d/c asa; reduce BP meds Normocytic anemia- moderate; check stool occult; give 2 units PBRC; check vitB12; iron studies ok UTI- ceftrixone; get culture Left pleural effusion- monitor HTN- home meds; hold HCZ GERD- ppi HLD- statin Prop: scd; ppi dispo: f/u labs; 05-08-20 Renal U/S normal; got 2 Units PRBC: check labs; Positive blood in stool- check CT abdomen; consult pt's GI .; CT= Left retroperitoneal/perinephric hematoma- keep and monitor for stability. Await GI eval; monitor counts; stop clonidine; cont carvedilo; d/c ccb. MEHNAZ TINSLEY MD PHD.
[2020-05-08] MEDS ORDERED: SODIUM CHLORIDE 0.9% 500ML 500 ML ONE (17:49)
[2020-05-08] MEDS ORDERED: SODIUM CHLORIDE 0.9% 500ML 500 ML IV STA (18:05)
--- NOTE | 2020-05-08 18:18 | NUR ---
BEGAN BOLUS NS INFUSION
--- NOTE | 2020-05-08 19:27 | NUR ---
Received change of shift report from AM nurse. Walking rounds completed.
[2020-05-08] MEDS: DOCUSATE SODIUM 100 MG CAP PO PRN (19:43)
--- NOTE | 2020-05-08 19:49 | NUR ---
Patient in bed. AAOx3. C/O need to have a BM. Patient requested colace. Med given as ordered by MD. Family at bedside. Continue monitor.
[2020-05-08] MEDS: GABAPENTIN 300 MG CAP PO SCH (20:06)
[2020-05-09] VITALS (11 sets, daily range): BP systolic 117–179; BP diastolic 63–84
--- NOTE | 2020-05-09 00:17 | NUR ---
Patient resting quitly at this time. Continue monitor.
--- NOTE | 2020-05-09 04:54 | NUR ---
Patient recieved warm prune juice for a BM. Patient had BM x2.
--- NOTE | 2020-05-09 08:00 | NUR ---
Alessiad call back from Dr. Barber who says he will come see the patient
[2020-05-09] MEDS: PANTOPRAZOLE SOD 40 MG TABEC PO SCH (08:15)
[2020-05-09] MEDS: OLMESARTAN 20 MG TAB PO SCH (08:15)
[2020-05-09] MEDS: CARVEDILOL 12.5 MG TAB PO SCH ×2 (08:15→17:06)
[2020-05-09] MEDS: FERROUS SULFATE 325 MG TAB PO SCH ×2 (08:15→17:06)
[2020-05-09] MEDS: SODIUM CHLORIDE 1 GM TAB PO SCH (08:16)
[2020-05-09] MEDS: ALPRAZOLAM 0.5 MG TAB PO SCH (08:16)
--- NOTE | 2020-05-09 08:41 | NUR ---
IM- progress note O/N see below ROS: no f/c/s/DANIELLE/cp/sob/skin rash/confusion/dizziness/leg pain/vision changes v/s revd PE tired appearing anicteric ns1s2 mod bs soft nt nd no e/t skin dry n. affect labs/meds revd A/P: 75yoF, Hyponatremia- rehydrate; check urine Na/osm and serum osm Dehydration- rehydrate Acute gastroenteritis- IVF; abx Left Retroperitoneal/Perinephric hematoma- d/c asa; reduce BP meds Normocytic anemia- moderate; check stool occult; give 2 units PBRC; check vitB12; iron studies ok UTI- ceftrixone; get culture Left pleural effusion- monitor HTN- home meds; hold HCZ GERD- ppi HLD- statin Prop: scd; ppi dispo: f/u labs; 05-08-20 Renal U/S normal; got 2 Units PRBC: check labs; Positive blood in stool- check CT abdomen; consult pt's GI .; CT= Left retroperitoneal/perinephric hematoma- keep and monitor for stability. Await GI eval; monitor counts; stop clonidine; cont carvedilo; d/c ccb. 05-09 check labs; await GI; avoid ASA/AC. Pt denies trauma or cough at home. MEHNAZ TINSLEY MD PHD.
[2020-05-09 09:03] LABS: ANION GAP 10.7 mmol/L (8-16); BLOOD UREA NITROGEN 8 mg/dL (7-26); BUN/CREATININE RATIO 11 (6-25); CALCIUM 8.3 mg/dL (8.4-10.2); CARBON DIOXIDE 23 mmol/L (22-29); CHLORIDE 104 mmol/L (98-107); CREATININE, SERUM 0.72 mg/dL (0.57-1.11); EST GLOMERULAR FILTRATION RATE > 60 ML/MIN (60-); GLUCOSE 91 mg/dL (74-118); POTASSIUM 3.7 mmol/L (3.5-5.1); SODIUM 134 mmol/L (136-145)
[2020-05-09 09:12] LABS: BASOPHILS # (AUTO) 0.1 (0.0-0.1); BASOPHILS % 1.1 % (0.0-1.0); EOSINOPHILS # (AUTO) 0.3 (0.0-0.4); EOSINOPHILS % 4.8 % (0.0-6.0); HEMATOCRIT 27.3 % (34.2-44.1); LYMPHOCYTES # (AUTO) 1.6 (1.0-3.2); LYMPHOCYTES % 28.4 % (18.0-39.1); MEAN CORPUSCULAR HEMOGLOBIN 29.2 pg (28-32); MEAN CORPUSCULAR VOLUME 88.6 fL (81-99); MONOCYTES # (AUTO) 0.5 (0.2-0.8); MONOCYTES % 9.5 % (4.4-11.3); NEUTROPHILS # (AUTO) 3.2 (2.1-6.9); NEUTROPHILS % 55.8 % (38.7-80.0); PLATELET COUNT 243 x10e3/uL (140-360); RED BLOOD COUNT 3.08 x10e6/uL (3.6-5.1); RED CELL DISTRIBUTION WIDTH 13.9 % (11.7-14.4)
[2020-05-09] MEDS: CEFTRIAXONE SOD 1 GM/NS 50 ML 50 ML IV SCH (11:56)
[2020-05-09] MEDS ORDERED: SODIUM CHLORIDE 0.9% 250ML 250 ML ONE (12:06)
[2020-05-09] MEDS ORDERED: HYDROMORPHONE 1MG/1ML INJ IV PRN (19:15)
--- NOTE | 2020-05-09 19:19 | NUR ---
Received change of shift report from AM nurse. Walking rounds completed. AM nurse s/w GI doctor r/t consult. called and stated Dr Delgado will see patient tonight.
[2020-05-09] MEDS: ONDANSETRON HCL INJ 2MG/ML 2ML 2 MG/ML VIAL IV PRN (19:56)
[2020-05-09] MEDS: ATORVASTATIN 40 MG TAB PO SCH (20:05)
[2020-05-09] MEDS: GABAPENTIN 300 MG CAP PO SCH (20:06)
--- NOTE | 2020-05-09 20:48 | NUR ---
Dr Delgado on the floor to see patient. Pt to be set up for coly/EGD on Tuesday.
--- NOTE | 2020-05-09 22:49 | NUR ---
Called and texted Dr Parrish regarding patient BP at 210/68 then after pain med. 193/100. No return call and Dr arringtonmaleny is full. Patient is wanting to go to the ER. Called Charge nurse Winnie states need to wait to s/w Dr Parrish. Patient nausea decreased but BP remain elevated.
--- NOTE | 2020-05-09 23:03 | NUR ---
Could not get call back from Dr Parrish so called Dr Mares to get order to help patient with the high BP. Dr Boris Serna called back and I ask for help with patient. states wait for Dr Parrish to call back.
--- NOTE | 2020-05-09 23:12 | NUR ---
curing room supervisor made aware.
[2020-05-10] VITALS (9 sets, daily range): BP systolic 120–185; BP diastolic 55–95
--- NOTE | 2020-05-10 04:15 | NUR ---
IM- progress note O/N see below ROS: no f/c/s/DANIELLE/cp/sob/skin rash/confusion/dizziness/leg pain/vision changes v/s revd PE tired appearing anicteric ns1s2 mod bs soft nt nd no e/t skin dry n. affect labs/meds revd A/P: 75yoF, Hyponatremia- rehydrate; check urine Na/osm and serum osm Dehydration- rehydrate Acute gastroenteritis- IVF; abx Left Retroperitoneal/Perinephric hematoma- d/c asa; reduce BP meds Normocytic anemia- moderate; check stool occult; give 2 units PBRC; check vitB12; iron studies ok UTI- ceftrixone; get culture Left pleural effusion- monitor HTN- home meds; hold HCZ GERD- ppi HLD- statin Prop: scd; ppi dispo: f/u labs; 05-08-20 Renal U/S normal; got 2 Units PRBC: check labs; Positive blood in stool- check CT abdomen; consult pt's GI .; CT= Left retroperitoneal/perinephric hematoma- keep and monitor for stability. Await GI eval; monitor counts; stop clonidine; cont carvedilo; d/c ccb. - check labs; await GI; avoid ASA/AC. Pt denies trauma or cough at home. -14 unlikely SIADH; likely response to pain and hematoma; check H/H; pain controlled; await endoscopy on Tuesday. MEHNAZ TINSLEY MD PHD.
--- NOTE | 2020-05-10 04:26 | NUR ---
Patient resting quitly at this time. Continue monitor.
[2020-05-10] MEDS ORDERED: HYDRALAZINE HCL 20 MG/ML VIAL IV PRN (04:45)
--- NOTE | 2020-05-10 05:14 | NUR ---
Dr Parrish on the floor to see patient. Orders received and completed.
[2020-05-10 06:34] LABS: HEMATOCRIT 26.9 % (34.2-44.1); HEMOGLOBIN 8.9 g/dL (12.0-16.0)
[2020-05-10] MEDS: PANTOPRAZOLE SOD 40 MG TABEC PO SCH (08:37)
[2020-05-10] MEDS: CARVEDILOL 12.5 MG TAB PO SCH ×2 (08:38→16:52)
[2020-05-10] MEDS: OLMESARTAN 20 MG TAB PO SCH (08:38)
[2020-05-10] MEDS: ALPRAZOLAM 0.5 MG TAB PO SCH (08:39)
[2020-05-10] MEDS: FERROUS SULFATE 325 MG TAB PO SCH ×2 (08:39→16:52)
[2020-05-10] MEDS: SODIUM CHLORIDE 1 GM TAB PO SCH (08:40)
[2020-05-10] MEDS: CEFTRIAXONE SOD 1 GM/NS 50 ML 50 ML IV SCH (12:10)
--- NOTE | 2020-05-10 18:28 | Consultation ---
DATE OF CONSULTATION: Renal Consultation Thank you Dr. Parrish for the consultation. HISTORY OF PRESENT ILLNESS: Ms. Starr is a pleasant 75-year-old female with past medical history significant for hypertension, hyperlipidemia, GERD, came in with nausea, vomiting, low sodium of 116. Apparently was hydrated initially, also was on hydrochlorothiazide which was discontinued. Subsequently, the patient's sodium improved from 116-126, which is a little faster correction than would be expected. However, then it was restarted over the next 24-48 hours, it stayed around 126 and then improved to about 134 to around 133 and it stabilized at that. The patient fluid had been stopped. The patient has been on salt tablets. Renal consultation also has been asked for the management of what appears to be an incidental finding on a CT scan. It showed left-sided retroperitoneal hematoma and also left infrarenal possible exophytic mass concerning for possible angiomyolipoma. Currently, the patient has gross hematuria. The patient has no fever, no chills, no nausea, no vomiting, no diarrhea, no abdominal pain. No other symptoms. PAST MEDICAL HISTORY: As outlined above. ALLERGIES: NO KNOWN DRUG ALLERGIES. SOCIAL HISTORY: No tobacco. No alcohol use. FAMILY HISTORY: Noncontributory. REVIEW OF SYSTEMS: See HPI. Otherwise, all systems negative. MEDICATIONS: That the patient currently is on have been reviewed per chart, particularly the patient is on ferrous sulfate, gabapentin, olmesartan, sodium chloride tablets, zolpidem. REVIEW OF SYSTEMS: See HPI. Otherwise, all systems negative. PHYSICAL EXAMINATION: VITAL SIGNS: Blood pressure is 120/55, 73 pulse, 19 respirations, afebrile. HEENT: No cervical lymphadenopathy. NECK: Supple without masses. No obvious JVD. Moist appearing mucous. SKIN: Moist with good skin turgor. CHEST WALL: Good expansion. No chest tenderness. Clear to auscultation bilaterally. CARDIOVASCULAR: S1, S2. No obvious gallop, rub, or murmur. ABDOMEN: Soft, positive bowel sounds. Nontender. EXTREMITIES: No evidence of lower extremity edema. No clubbing. No cyanosis. NEUROLOGIC: Awake, alert, and oriented x3. Grossly nonfocal exam. LABORATORY WORKUP: On presentation, sodium was 116. Serum osmolality was 253. Urine osmolality was 99. Urine sodium less than 20. Specific gravity was 1.030. Current most recent blood work shows a sodium now of 134, potassium 3.7, chloride 104, bicarb 23, BUN 8, creatinine 0.7. IMPRESSION AND PLAN: 1. Hyponatremia, likely initial etiology was secondary to volume depletion, which responded to IV fluid hydration and stopping the hydrochlorothiazide. Eventually, I agree with stopping the IV fluids and fluid restricting the patient. At baseline, may have SIADH. For now, the patient's sodium is holding steady around 133-134. Sodium correction initially was faster than the first 24 hours which should not exceed more than 6-8 maximum in the first 24 hours. In any case, it was then appropriately retarded and patient is asymptomatic. We will recheck urine osmolality and serum osmolality and urine sodium levels. For now, we will discontinue the salt tablets and re-evaluate and make further recommendations. 2. Last sodium level was 133. We will discontinue any q.4 hours sodium checks for now. 3. TSH level was checked, was low at 0.25, which goes against this being hypothyroidism associated hyponatremia. The patient also had a chest x-ray done and did show a left-sided pleural effusion which appears to have resolved or possibly still there. We will do a followup chest x-ray. May require one dose of Lasix. 4. Hypertension blood pressure is controlled. 5. Left-sided retroperitoneal hematoma, likely will be observed for now. H and H have been stable. The patient did receive PRBCs. 6. Possible left-sided inferior renal exophytic mass concerning for angiomyolipoma. Would recommend urological consultation to better get recommendations with regard to this, but if it is an angiomyolipoma then usually it is a benign finding and will likely only need to be observed. Thank you once again for the consultation. We will follow the patient closely along with you and make further recommendations. Mikel Dillon MD /MODL /[id number] cc: Bam Parrish MD
[2020-05-10] MEDS: GABAPENTIN 300 MG CAP PO SCH (20:09)
[2020-05-10] MEDS: ATORVASTATIN 40 MG TAB PO SCH (20:09)
[2020-05-11] VITALS (9 sets, daily range): BP systolic 134–160; BP diastolic 72–82
[2020-05-11 06:16] LABS: BASOPHILS # (AUTO) 0.1 (0.0-0.1); EOSINOPHILS # (AUTO) 0.3 (0.0-0.4); EOSINOPHILS % 6.7 % (0.0-6.0); HEMATOCRIT 26.6 % (34.2-44.1); HEMOGLOBIN 8.7 g/dL (12.0-16.0); LYMPHOCYTES # (AUTO) 1.7 (1.0-3.2); LYMPHOCYTES % 33.7 % (18.0-39.1); MEAN CORPUSCULAR HEMOGLOBIN 29.7 pg (28-32); MEAN CORPUSCULAR HGB CONC 32.7 g/dL (31-35); MEAN CORPUSCULAR VOLUME 90.8 fL (81-99); MONOCYTES # (AUTO) 0.5 (0.2-0.8); MONOCYTES % 10.3 % (4.4-11.3); NEUTROPHILS # (AUTO) 2.3 (2.1-6.9); NEUTROPHILS % 47.5 % (38.7-80.0); PLATELET COUNT 257 x10e3/uL (140-360); RED BLOOD COUNT 2.93 x10e6/uL (3.6-5.1); RED CELL DISTRIBUTION WIDTH 14.1 % (11.7-14.4)
[2020-05-11 06:37] LABS: ALANINE AMINOTRANSFERASE 14 IU/L (0-55); ALBUMIN/GLOBULIN RATIO 1.3 (0.8-2.0); ALKALINE PHOSPHATASE 46 IU/L (40-150); BLOOD UREA NITROGEN 8 mg/dL (7-26); BUN/CREATININE RATIO 10 (6-25); CALCIUM 8.4 mg/dL (8.4-10.2); CARBON DIOXIDE 26 mmol/L (22-29); CHLORIDE 103 mmol/L (98-107); CREATININE, SERUM 0.81 mg/dL (0.57-1.11); EST GLOMERULAR FILTRATION RATE > 60 ML/MIN (60-); GLUCOSE 91 mg/dL (74-118); MAGNESIUM 1.8 MG/DL (1.3-2.1); PHOSPHORUS 3.8 MG/DL (2.3-4.7); SODIUM 136 mmol/L (136-145)
--- NOTE | 2020-05-11 07:10 | NUR ---
PATIENT IS AWAKE, ALERT, AND IN STABLE CONDITION WITH NO S/S OF RESPIRATORY DISTRESS. NO PAIN VOICED. WALKER AVAILABLE FOR PATIENT NEAR BEDSIDE. CALL LIGHT IS WITHIN REACH, PATIENT INSTRUCTED TO CALL FOR ASSISTANCE NEEDED.
[2020-05-11] MEDS: PANTOPRAZOLE SOD 40 MG TABEC PO SCH (08:02)
[2020-05-11] MEDS: OLMESARTAN 20 MG TAB PO SCH (08:03)
[2020-05-11] MEDS: FERROUS SULFATE 325 MG TAB PO SCH ×2 (08:03→16:46)
[2020-05-11] MEDS: CARVEDILOL 12.5 MG TAB PO SCH ×2 (08:03→16:46)
[2020-05-11] MEDS: ALPRAZOLAM 0.5 MG TAB PO SCH (08:03)
[2020-05-11] MEDS ORDERED: BISACODYL 5 MG TAB EC PO ONE (09:00)
--- NOTE | 2020-05-11 09:14 | NUR ---
IM- progress note O/N see below ROS: no f/c/s/DANIELLE/cp/sob/skin rash/confusion/dizziness/leg pain/vision changes v/s revd PE tired appearing anicteric ns1s2 mod bs soft nt nd no e/t skin dry n. affect labs/meds revd A/P: 75yoF, Hyponatremia- rehydrate; check urine Na/osm and serum osm Dehydration- rehydrate Acute gastroenteritis- IVF; abx Left Retroperitoneal/Perinephric hematoma- d/c asa; reduce BP meds Normocytic anemia- moderate; check stool occult; give 2 units PBRC; check vitB12; iron studies ok UTI- ceftrixone; get culture Left pleural effusion- monitor HTN- home meds; hold HCZ GERD- ppi HLD- statin Prop: scd; ppi dispo: f/u labs; 05-08-20 Renal U/S normal; got 2 Units PRBC: check labs; Positive blood in stool- check CT abdomen; consult pt's GI .; CT= Left retroperitoneal/perinephric hematoma- keep and monitor for stability. Await GI eval; monitor counts; stop clonidine; cont carvedilo; d/c ccb. - check labs; await GI; avoid ASA/AC. Pt denies trauma or cough at home. 14 unlikely SIADH; likely response to pain and hematoma; check H/H; pain controlled; await endoscopy on Tuesday. -15 continue care; f/u urology eval; appreciate nephr imput; control BP. MEHNAZ TINSLEY MD PHD.
[2020-05-11] MEDS ORDERED: PEG (High)/E-LYTE SOLN 4,000 ML BTL PO ONE (10:00)
[2020-05-11] MEDS: AMLODIPINE BESYLATE 5 MG TAB PO SCH (10:19)
[2020-05-11] MEDS: CEFTRIAXONE SOD 1 GM/NS 50 ML 50 ML IV SCH (12:01)
--- NOTE | 2020-05-11 13:52 | Consultation ---
DATE OF CONSULTATION: 05/11/2020 Urology Consultation REASON FOR CONSULTATION: Perinephric hematoma. HISTORY OF PRESENT ILLNESS: Stephany Starr is a 75-year-old woman, who was admitted with intractable nausea and vomiting and a 3-day history of abdominal pain. She was a direct admission. She has been worked up during this hospitalization and was found to have perinephric hematoma. Urological consultation was subsequently sought. The patient denies hematuria, dysuria, and urinary tract infections. The patient had urolithiasis in the past and had an open right nephrolithotomy over 40 years ago. The patient upon her workup was found to have a hematoma in her left retroperitoneum that tracking into the left iliac fossa and perisacral space and urological consultation was subsequently sought. There is also a 2 cm heterogeneous partially fatty exophytic mass along the left renal inferior pole consistent with an angiomyolipoma. PAST MEDICAL AND SURGICAL HISTORY: 1. Hypertension. 2. Hyperlipidemia. 3. Gastroesophageal reflux disease. 4. Status post cholecystectomy. 5. 2, para 2 by spontaneous vaginal delivery. 6. Right nephrolithotomy. ALLERGIES: NONE KNOWN. CURRENT MEDICATIONS: Please refer to the MAR. SOCIAL HISTORY: The patient denies smoking, ethanol, drug use. She used to work in school. FAMILY HISTORY: Noncontributory to the active urological problems. REVIEW OF SYSTEMS: Discussed as above in the history of present illness, past medical history, otherwise negative for all systems. EGD and colonoscopy are pending. PHYSICAL EXAMINATION: GENERAL: Healthy-appearing 75-year-old woman lying in bed, in no apparent distress. She is currently afebrile. VITAL SIGNS: Currently stable. ABDOMEN: Soft, nondistended, nontender without costovertebral angle tenderness. Kidneys not palpable without hepatosplenomegaly. No obvious evidence of hernia. For the remaining physical examination systems, please refer to the admission history and physical in chart. LABORATORY STUDIES: 1. Urine culture is "contaminated", this is the result of a non-clean catch urinary specimen with moderate epithelial cells that urinalysis also showed trace blood with 0-5 rbc's, but no wbc's and 1+ protein. White blood cell count 4930, hemoglobin 8.7, it was down to 6.5 earlier this admission prior to the blood and platelets are 257,000. The patient's sodium was low at 133, but it has since normalized. Her creatinine is normal at 0.81. Calcium was low at 8.2 and 8.3, but it also normalized. CT scan of the abdomen and pelvis reveals a 10 cm left retroperitoneal perinephric hematoma and a questionable 2 cm heterogeneous partially fatty exophytic mass along the left renal inferior pole consistent with an angiomyolipoma. For the non-urological findings, I defer to the admitting physician. The renal ultrasound showed bilateral normal renal ultrasound. ASSESSMENT: 1. 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 2. History of right nephrolithiasis requiring nephrolithotomy remotely. 3. Probable urinary tract infection. 4. Microhematuria. 5. Proteinuria. 6. Anemia. 7. Hyponatremia, that improved. 8. Hypercalcemia that improved. PLAN: 1. Hematological and electrolyte abnormalities per the primary team. 2. Ongoing followup. 3. The patient will need reimaging as outpatient in several weeks. 4. The patient is at risk for additional bleeding from an angiomyolipoma. Usually angiomyolipomas bleed when they are larger than 4 cm. This would be an unusual presentation. Nevertheless, we may need to address this angiomyolipoma once the hematoma has completely been resorbed resolved. Thank you very much for involving us in care of your patient. We will follow along with you as well as an outpatient. Nathan Kessler MD [place]/MODL /[id number] cc: eDs Gregory MD
--- NOTE | 2020-05-11 19:07 | NUR ---
PATIENT IS IN STABLE CONDITION WITH NO S/S OF RESPIRATORY DISTRESS. NO PAIN VOICED. WALKER AVAILABLE FOR PATIENT NEAR BEDSIDE. PATIENT CONTINUING TO PREP FOR COLONOSCOPY TOMORROW. CALL LIGHT IS WITHIN REACH, PATIENT INSTRUCTED TO CALL FOR ASSISTANCE NEEDED. BEDSIDE SHIFT REPORT GIVEN TO ONCOMING NURSE.
[2020-05-11] MEDS: GABAPENTIN 300 MG CAP PO SCH (21:06)
[2020-05-11] MEDS: ATORVASTATIN 40 MG TAB PO SCH (21:06)
[2020-05-12] VITALS (7 sets, daily range): BP systolic 109–162; BP diastolic 54–78
[2020-05-12 06:08] LABS: BASOPHILS # (AUTO) 0.1 (0.0-0.1); BASOPHILS % 0.8 % (0.0-1.0); EOSINOPHILS # (AUTO) 0.4 (0.0-0.4); EOSINOPHILS % 6.2 % (0.0-6.0); HEMATOCRIT 30.3 % (34.2-44.1); HEMOGLOBIN 9.9 g/dL (12.0-16.0); LYMPHOCYTES # (AUTO) 1.3 (1.0-3.2); MEAN CORPUSCULAR HEMOGLOBIN 29.8 pg (28-32); MEAN CORPUSCULAR HGB CONC 32.7 g/dL (31-35); MEAN CORPUSCULAR VOLUME 91.3 fL (81-99); MONOCYTES # (AUTO) 0.7 (0.2-0.8); NEUTROPHILS # (AUTO) 4.2 (2.1-6.9); NEUTROPHILS % 63.7 % (38.7-80.0); PLATELET COUNT 284 x10e3/uL (140-360); RED BLOOD COUNT 3.32 x10e6/uL (3.6-5.1); RED CELL DISTRIBUTION WIDTH 14.2 % (11.7-14.4)
[2020-05-12 06:29] LABS: ANION GAP 10.7 mmol/L (8-16); BLOOD UREA NITROGEN 6 mg/dL (7-26); BUN/CREATININE RATIO 8 (6-25); CALCIUM 8.8 mg/dL (8.4-10.2); CARBON DIOXIDE 27 mmol/L (22-29); CHLORIDE 102 mmol/L (98-107); CREATININE, SERUM 0.77 mg/dL (0.57-1.11); EST GLOMERULAR FILTRATION RATE > 60 ML/MIN (60-); GLUCOSE 89 mg/dL (74-118); POTASSIUM 3.7 mmol/L (3.5-5.1); SODIUM 136 mmol/L (136-145)
[2020-05-12] MEDS: PANTOPRAZOLE SOD 40 MG TABEC PO SCH (09:15)
[2020-05-12] MEDS: CARVEDILOL 12.5 MG TAB PO SCH (09:16)
[2020-05-12] MEDS: ALPRAZOLAM 0.5 MG TAB PO SCH (09:16)
[2020-05-12] MEDS: AMLODIPINE BESYLATE 5 MG TAB PO SCH (09:16)
[2020-05-12] MEDS: OLMESARTAN 20 MG TAB PO SCH (09:16)
[2020-05-12] MEDS: FERROUS SULFATE 325 MG TAB PO SCH (09:16)
[2020-05-12] MEDS: CEFTRIAXONE SOD 1 GM/NS 50 ML 50 ML IV SCH (10:50)
[2020-05-12] MEDS ORDERED: FENTANYL CITRATE/PF 100MCG/2 ML INJ ONE (12:09)
--- NOTE | 2020-05-12 12:29 | NUR ---
D/C summar Principal dx: Hyponatremia- rehydrate; check urine Na/osm and serum osm Dehydration- rehydrate Acute gastroenteritis- IVF; abx Left Retroperitoneal/Perinephric hematoma- d/c asa; reduce BP meds Normocytic anemia- moderate; check stool occult; give 2 units PBRC; check vitB12; iron studies ok UTI- ceftrixone; get culture Left pleural effusion- monitor Secondary Dx; HTN- home meds; hold HCZ GERD- ppi HLD- statin Prop: scd; ppi dispo: f/u labs; 05-08-20 Renal U/S normal; got 2 Units PRBC: check labs; Positive blood in stool- check CT abdomen; consult pt's GI .; CT= Left retroperitoneal/perinephric hematoma- keep and monitor for stability. Await GI eval; monitor counts; stop clonidine; cont carvedilo; d/c ccb. 05-09 check labs; await GI; avoid ASA/AC. Pt denies trauma or cough at home. 14 unlikely SIADH; likely response to pain and hematoma; check H/H; pain controlled; await endoscopy on Tuesday. -16 EGD done; BP stable; d/c home with BP meds; will need to f/u with PCP 2 days d/c home stable f/u pcp 2 days and urology 1 week d/c>35mins MEHNAZ TINSLEY MD PHD.
--- NOTE | 2020-05-12 13:08 | NUR ---
EDUCATED ABOUT IMM, SIGNED, FILED IN CHART, WITH COPY LEFT WITH FAMILY AT BEDSIDE.
--- NOTE | 2020-05-12 16:03 | Progress Note ---
DATE: 05/12/2020 Nephrology Progress Note SUBJECTIVE: Followup for hyponatremia, which appears resolved. The patient has no specific symptoms. OBJECTIVE: VITAL SIGNS: Stable. Blood pressure 124/78, pulse 82 per minute. She is afebrile. Oxygen saturation 97% on room air. NECK: Without JVP. Supple. CHEST: Auscultation bilaterally anterolaterally reveals no adventitious lung sounds. CARDIOVASCULAR: Normal S1, S2 without rub or gallop. ABDOMEN: Soft, depressible, nondistended. EXTREMITIES: Without pitting edema or cyanosis. NEUROLOGICAL: Alert and oriented. LABORATORY DATA: Electrolytes, BUN and creatinine are all normal now. Calcium 8.8. IMPRESSION AND PLAN: 1. Hyponatremia, secondary to volume depletion. Staying resolved. Continue to monitor in hospital. 2. Hypertension. BP is controlled. 3. Left inferior renal exophytic mass concerning for angiomyolipoma. Seen by urologist. Monitor for bleeding. Guillermo Fuller MD [facility]/MODL /[id number]
[2020-05-12] MEDS ORDERED: ONDANSETRON HCL INJ 2MG/ML 2ML 2 MG/ML VIAL ONE (19:36)
[2020-05-12] MEDS ORDERED: LIDOCAINE HCL 2% LOCAL INJ 5 ML SDV VIAL INJ ONE (19:36)
[2020-05-12] MEDS ORDERED: PROPOFOL IV EMULSION 10 MG/ML 20 ML VIAL ONE (19:36)
== END 2020-05-12 16:26 | disposition home or self-care (01) | DRG 689 ==
LOC: MED/SURG3 17:32 → OBSVTOIN 05-08 17:27
PROVIDERS: ADMIT Internal Medicine; ATTEND Internal Medicine
PROC: 30233N1 Transfusion of Nonautologous Red Blood Cells into Peripheral Vein, Percutaneous Approach (ICD-10-PCS; 2020-05-07)
PROC: 0DBL8ZZ Excision of Transverse Colon, Via Natural or Artificial Opening Endoscopic (ICD-10-PCS; principal; 2020-05-11)
PROC: 0DB78ZX Excision of Stomach, Pylorus, Via Natural or Artificial Opening Endoscopic, Diagnostic (ICD-10-PCS; 2020-05-12)
PROC: 0DB38ZX Excision of Lower Esophagus, Via Natural or Artificial Opening Endoscopic, Diagnostic (ICD-10-PCS; 2020-05-12 06:56)
DX: N39.0 Urinary tract infection, site not specified (principal); K66.1 Hemoperitoneum; E87.1 Hypo-osmolality and hyponatremia; J90 Pleural effusion, not elsewhere classified; K52.9 Noninfective gastroenteritis and colitis, unspecified; E86.0 Dehydration; D64.9 Anemia, unspecified; K21.9 Gastro-esophageal reflux disease without esophagitis; E78.5 Hyperlipidemia, unspecified; I10 Essential (primary) hypertension; N28.89 Other specified disorders of kidney and ureter; E83.52 Hypercalcemia; Z20.828 Contact with and (suspected) exposure to other viral communicable diseases
CPT/HCPCS: 36415; 43239; 45385; 71046; 71101; 74177; 76770; 80048; 80053; 81001; 82270; 82607; 82728; 82947; 83540; 83735; 83930; 83935; 84100; 84295; 84300; 84443; 84466; 84520; 85014; 85018; 85025; 86850; 86900; 86920; 87086; 88305; 88312; 93005; 97139; G0378; J0360; J0696; J1170; J2001; J2405; J2550; J3010; J7030; J7040; J7050; P9016; Q9967; U0002

== ENCOUNTER → 2020-06-12 | Outpatient (CLI) | payer MEDICARE ==
[~2020-06-12] MED LIST: ALPRAZOLAM0.5 MG PO; ASPIRIN EC81 MG PO; ATORVASTATIN CA20 MG PO; BENICAR20 MG PO; CARAFATE1 GM/10 ML PO; CARVEDILOL12.5 MG PO; CLONIDINE HCL0.1 MG PO; FERROUS SULFAT325 M1 PO; GABAPENTIN300 MG PO; HYDROCHLOROTHIA25 MG PO; IOPAMIDOL 370 MG/ML 200 ML INFUS..BTL INJ ONE; NIFEDIPINE ER30 M1 PO; OMEPRAZOLE40 MG PO; PROTONIX20 MG PO; SODIUM CHLORIDE 0.9% 50ML 50 ML ONE; SODIUM CHLORIDE1 GM PO
[2020-06-12 16:11] LABS: BLOOD UREA NITROGEN 15 mg/dL (7-26); BUN/CREATININE RATIO 23 (6-25); CREATININE, SERUM 0.66 mg/dL (0.57-1.11); EST GLOMERULAR FILTRATION RATE > 60 ML/MIN (60-)
== END ==
LOC: CT 15:27
PROVIDERS: ATTEND Urology
DX: D41.02 Neoplasm of uncertain behavior of left kidney (principal); R31.21 Asymptomatic microscopic hematuria
CPT/HCPCS: 36415; 74177; 82565; 84520; Q9967

== ENCOUNTER → 2020-12-12 | Outpatient (CLI) | payer MEDICARE ==
[~2020-12-12] MED LIST changes: +GADOBENATE DIMEGLUMINE 1 ML IV ONE; -IOPAMIDOL 370 MG/ML 200 ML INFUS..BTL INJ ONE
== END ==
LOC: MRI 12:21
PROVIDERS: ATTEND Urology
DX: R31.21 Asymptomatic microscopic hematuria (principal); D41.02 Neoplasm of uncertain behavior of left kidney
CPT/HCPCS: 74183

== ENCOUNTER 2024-10-03 00:20 | Emergency (ER) | payer MEDICARE ==
[~2024-10-03] VITALS: Ht 160 cm; Wt 70.8 kg
[~2024-10-03 00:20] MED LIST changes: -GADOBENATE DIMEGLUMINE 1 ML IV ONE; -SODIUM CHLORIDE 0.9% 50ML 50 ML ONE
[2024-10-03 01:00] VITALS: TEMP 99
[2024-10-03] MEDS ORDERED: SODIUM CHLORIDE FLUSH 10 ML SYR IV PRN (01:00)
[2024-10-03] MEDS: HYDRALAZINE HCL 20 MG/ML VIAL IV STA (01:18)
[2024-10-03 01:39] LABS: BASOPHILS % 0.6 % (0.0-1.0); EOSINOPHILS # (AUTO) 0.1 (0.0-0.4); EOSINOPHILS % 1.8 % (0.0-6.0); HEMOGLOBIN 11.6 g/dL (12.0-16.0); LYMPHOCYTES # (AUTO) 1.8 (1.0-3.2); LYMPHOCYTES % 35.3 % (18.0-39.1); MEAN CORPUSCULAR HEMOGLOBIN 29.7 pg (28-32); MEAN CORPUSCULAR HGB CONC 33.1 g/dL (31-35); MEAN CORPUSCULAR VOLUME 89.5 fL (81-99); MONOCYTES # (AUTO) 0.4 (0.2-0.8); MONOCYTES % 7.4 % (4.4-11.3); NEUTROPHILS # (AUTO) 2.7 (2.1-6.9); NEUTROPHILS % 54.9 % (38.7-80.0); PLATELET COUNT 333 x10e3/uL (140-360); RED BLOOD COUNT 3.91 x10e6/uL (3.6-5.1); RED CELL DISTRIBUTION WIDTH 12.2 % (11.7-14.4); WHITE BLOOD COUNT 4.99 x10e3/uL (4.8-10.8)
[2024-10-03 02:01] LABS: CLARITY,URINE CLEAR (CLEAR); COLOR,URINE YELLOW (YELLOW); PH,URINE 7 (5 - 7)
[2024-10-03 02:02] LABS: BILIRUBIN,URINE NEGATIVE (NEGATIVE); GLUCOSE, URINE NEGATIVE (NEGATIVE); KETONES,URINE NEGATIVE (NEGATIVE); LEUKOCYTE ESTERASE ,URINE NEGATIVE (NEGATIVE); NITRITE,URINE NEGATIVE (NEGATIVE); PROTEIN,URINE DIPSTICK NEGATIVE (NEGATIVE); URINE UROBILINOGEN 0.2 mg/dL (0.2 - 1)
[2024-10-03 02:15] VITALS: PULSE 87; RESP 16
[2024-10-03 02:18] LABS: ALANINE AMINOTRANSFERASE 19 IU/L (0-55); ALBUMIN 3.8 g/dL (3.5-5.0); ALBUMIN/GLOBULIN RATIO 1.4 (0.8-2.0); ALKALINE PHOSPHATASE 71 IU/L (40-150); ANION GAP 14.8 mmol/L (8-16); BILIRUBIN,TOTAL 0.6 mg/dL (0.2-1.2); BLOOD UREA NITROGEN 18 mg/dL (7-26); BUN/CREATININE RATIO 22 (6-25); CALCIUM 8.7 mg/dL (8.4-10.2); CARBON DIOXIDE 22 mmol/L (22-29); CHLORIDE 100 mmol/L (98-107); CREATININE, SERUM 0.83 mg/dL (0.57-1.11); EST GLOMERULAR FILTRATION RATE 73 ML/MIN (>=60); GLUCOSE 95 mg/dL (74-118); POTASSIUM 3.8 mmol/L (3.5-5.1); SODIUM 133 mmol/L (136-145); TOTAL PROTEIN 6.6 g/dL (6.5-8.1)
[2024-10-03] MEDS ORDERED: ACETAMINOPHEN 325 MG TAB ONE (02:23)
[2024-10-03 02:25] LABS: BACTERIA,URINE FEW /HPF; EPITHELIAL CELLS,URINE FEW /LPF; RBC,URINE 0-5 /HPF (0-5); WBC,URINE (MAN) 0-5 /HPF (0-5)
[2024-10-03 02:27] LABS: TROPONIN I < 0.001 ng/mL (0-0.300)
[2024-10-03] MEDS ORDERED: ACETAMINOPHEN 325 MG TAB PO ONE (02:30)
[2024-10-03 02:52] VITALS: BP 171/83; O2SAT 100
== END 2024-10-03 02:55 | disposition home or self-care (01) ==
LOC: ER 01:23
DX: I10 Essential (primary) hypertension (principal); K21.9 Gastro-esophageal reflux disease without esophagitis; F41.9 Anxiety disorder, unspecified; R94.31 Abnormal electrocardiogram [ECG] [EKG]; Z85.3 Personal history of malignant neoplasm of breast; Z87.442 Personal history of urinary calculi
CPT/HCPCS: 36415; 71045; 80053; 81001; 83880; 84484; 85025; 93005; 94760; 99284; J0360